=== PATIENT | female | born 1985 | race Caucasian/White ===

== ENCOUNTER → 2021-09-27 | Outpatient (CLI) | payer OTHER | LOC: COL.RAD 07:26 | DX: Q62.11 Congenital occlusion of ureteropelvic junction (principal); R33.8 Other retention of urine; Z87.440 Personal history of urinary (tract) infections | CPT/HCPCS: Q9967 ==

== ENCOUNTER → 2022-07-12 | Outpatient (CLI) | payer OTHER | LOC: MHCPAIN 12:44 | DX: M79.18 Myalgia, other site (principal); M54.81 Occipital neuralgia; G44.229 Chronic tension-type headache, not intractable | CPT/HCPCS: G0463; J1040 ==